=== PATIENT | male | born 2000 | race Caucasian/White ===

== ENCOUNTER 2023-12-20 08:15 | Outpatient (CLI) | payer OTHER ==
--- NOTE | 2023-12-20 11:05 | XRAY Report ---
PROCEDURE: Knee 2V LT INDICATIONS: INTERNAL DERANGEMENT, LEFT KNEE TECHNIQUE: 2 views of the knee(s) were acquired. COMPARISON: None. FINDINGS: Bones: No fractures or dislocations. No suspicious bony lesions. Soft tissues: Trace knee joint effusion. No suspicious soft tissue calcifications or masses. IMPRESSION: No acute bony abnormality. If pain persists with conservative management, consider repeat x-ray in 10 -14 days or cross-sectional imaging. Reviewed by: Adelso Barnett MD on 12/20/2023 11:03 AM PDT Approved by: Adelso Barnett MD on 12/20/2023 11:03 AM PDT Station ID: [id number]
== END 2023-12-20 08:16 | disposition home or self-care (01) ==
LOC: DI.N 08:15
PROVIDERS: ATTEND Family Medicine
DX: M23.92 Unspecified internal derangement of left knee (principal)

== ENCOUNTER 2024-01-30 10:40 | Outpatient (CLI) | payer OTHER ==
--- NOTE | 2024-01-30 16:15 | MRI Report ---
PROCEDURE: Knee LT WO INDICATIONS: RIGHT KNEE PAIN TECHNIQUE: Noncontrast sagittal PD fast spin echo and T2 fast spin echo with fat saturation, sagittal 3-D spoile d GE with fat saturation; coronal T1 spin echo and PD fast spin echo with fat saturation, and axial P D fast spin echo with fat saturation through the knee. COMPARISON: Left knee radiographs 12/20/2023. FINDINGS: Image quality: Excellent. Anterior cruciate ligament: Intact. Posterior cruciate ligament: Intact. Medial collateral ligament: Intact. Lateral collateral ligament: Intact. Medial meniscus: Intact. Lateral meniscus: There is horizontal tearing at the body of the lateral meniscus with a lobular par ameniscal cyst laterally measuring up to 2.4 x 1.0 x 2.0 cm. Medial and lateral tendons: The semimembranosus tendon insertions appear intact. Visualized portion s of the pes anserinus tendons appear normal. The popliteus tendon appears intact. Iliotibial band appears normal. Anterior structures: The patellar tendon and the distal quadriceps tendon appear intact. No patellar subluxation. No femoral trochlear dysplasia or ventral trochlear prominence. No edema in the infra patellar fat pad. Bones: No acute trabecular bone injury or fracture. Medial femorotibial cartilage: Intact. Lateral femorotibial cartilage: Intact. Patellofemoral cartilage: Intact. Soft tissues: There is a small joint effusion. There is a trace medial popliteal cyst. The musculat ure surrounding the knee is normal in bulk. IMPRESSION: 1.Horizontal tearing at the body of the lateral meniscus with a 2.4 cm parameniscal cyst laterally. 2.Cruciate and collateral ligaments are intact. No acute trabecular bone injury. No focal cartilage d efect. Medial meniscus is intact. 3.Small joint effusion. Reviewed by: Jovanny Jc MD on 01/30/2024 4:14 PM PDT Approved by: Jovanny Jc MD on 01/30/2024 4:14 PM PDT Station ID: [id number]
== END 2024-01-30 10:41 | disposition home or self-care (01) ==
LOC: DI 10:40
PROVIDERS: ATTEND Preventive Medicine Aerospace Medicine
DX: S83.282A Other tear of lateral meniscus, current injury, left knee, initial encounter (principal); M25.462 Effusion, left knee; M25.862 Other specified joint disorders, left knee